=== PATIENT | male | born 1985 | race Caucasian/White ===

== ENCOUNTER 2018-05-07 13:03 | Emergency (ER) | payer OTHER ==
[2018-05-07 13:28] VITALS: BP 126/73
--- NOTE | 2018-05-07 13:59 | UC ---
Pk Luong Simon, scribed for Jayme Whitfield MD on 05/07/18 at 1337 . Skin Complaint HPI - HPI Summary HPI Summary: This patient is a 33 year old M presenting to [facility] [place] with a chief complaint of rash on shaft of penis for one week. Patient endorses rash is worsening. Pt has been having unprotected sex with of 12 years, and denies any pain or penile discharge. - History of Current Complaint Chief Complaint: UCRash Time Seen by Provider: 05/07/18 13:32 Stated Complaint: RASH Hx Obtained From: Patient Onset/Duration: Lasting Days, Still Present Timing: Constant Onset Severity: Mild Current Severity: Moderate Pain Intensity: 0 Pain Scale Used: 0-10 Numeric Location: Discrete - shaft of penis Character: Redness, Raised Aggravating Factor(s): Nothing Alleviating Factor(s): Nothing Associated Signs & Symptoms: Positive: Rash - Allergy/Home Medications Allergies/Adverse Reactions: Allergies Allergy/AdvReac Type Severity Reaction Status Date / Time No Known Allergies Allergy Verified 05/07/18 13:29 Review of Systems Skin: Rash, Other - purulence Genitourinary: Vaginal/Penile Burning, Vaginal/Penile Itching All Other Systems Reviewed And Are Negative: Yes PMH/Surg Hx/FS Hx/Imm Hx Previously Healthy: Yes - Surgical History Surgical History: None - Family History Known Family History: Positive: None - Social History Alcohol Use: None Substance Use Type: Marijuana Smoking Status (MU): Current Every Day Smoker Type: Cigarettes Amount Used/How Often: 1/2 PPD Length of Time of Smoking/Using Tobacco: 14+ YEARS Have You Smoked in the Last Year: Yes Physical Exam - Summary Physical Exam Summary: VITAL SIGNS: Reviewed. GENERAL: Patient is a well-developed and nourished male who is lying comfortable in the stretcher. Patient is not in any acute respiratory distress. HEAD AND FACE: Normocephalic EYES: PERRLA, EOMI x 2. EARS: Hearing grossly intact. MOUTH: Oropharynx within normal limits. NECK: Supple, trachea is midline, no adenopathy, no JVD, no carotid bruit. CHEST: Symmetric, no tenderness at palpation LUNGS: Clear to auscultation bilaterally. No wheezing or crackles. CVS: Regular rate and rhythm, S1 and S2 present, no murmurs or gallops appreciated. ABDOMEN: Soft, non-tender. Bowel sounds are normal. No abdominal abnormal pulsations. EXTREMITIES: Full ROM in all major joints, no edema, no cyanosis or clubbing. NEURO: Alert and oriented x 3. No acute neurological deficits. Speech is normal and follows commands. SKIN: Dry and warm, maculopapular rash on shaft of penis with some vesicles with white purulent discharge. Circumcised penis with both testicles descended, no tenderness. Triage Information Reviewed: Yes Vital Signs: Initial Vital Signs Temp 98 F 05/07/18 13:25 Pulse 69 05/07/18 13:25 Resp 17 05/07/18 13:25 BP 126/73 05/07/18 13:25 Pulse Ox 100 05/07/18 13:25 Vital Signs Reviewed: Yes Course/Dx - Course Course Of Treatment: This patient presents with a vesiculopapular rash on the shaft of the penis. It is not carachteristic of genital herpes. The vesicles a filled with white discharge. Rash is not tender. I send cultures for regular wound culture, and also for herpes simplex virus. At this time I would be given a prescription for Bactrim and the patient will follow-up with the primary care physician or the urgent care for the results of the HSV culture. The patient understands that he is recommended not to have any sexual intercourse without any protection. He understands and agrees. - Diagnoses Provider Diagnoses: Cellulitis r/o HSV Discharge - Sign-Out/Discharge Documenting (check all that apply): Discharge/Admit/Transfer - D/C - Discharge Plan Condition: Stable Disposition: HOME Prescriptions: Sulfamethox/Trimethoprim DS* [Bactrim DS 800/160 TAB*] 1 tab PO BID #10 tab Patient Education Materials: Cellulitis (ED) Referrals: Sg Ragsdale MD [Primary Care Provider] - Additional Instructions: Take medications as instructed Increase your fluid intake Return to the if symptoms worsen - Billing Disposition and Condition Condition: STABLE Disposition: Home The documentation as recorded by the Pk soto Simon accurately reflects the service I personally performed and the decisions made by me, Jayme Whitfield MD.
--- NOTE | 2018-05-09 15:27 | UC ---
- Progress Note Progress Note: Please call pt and ask how he is doing. Site culture was negative. If rash has cleared with Bactrim - may continue If rash is not improving - needs a f/u appointment with PCP. Discharge - Sign-Out/Discharge Documenting (check all that apply): Post-Discharge Follow Up - Discharge Plan Condition: Stable Disposition: HOME Prescriptions: Sulfamethox/Trimethoprim DS* [Bactrim DS 800/160 TAB*] 1 tab PO BID #10 tab Patient Education Materials: Cellulitis (ED) Referrals: Sg Ragsdale MD [Primary Care Provider] - Additional Instructions: Take medications as instructed Increase your fluid intake Return to the UC if symptoms worsen - Billing Disposition and Condition Condition: STABLE Disposition: Home
== END 2018-05-07 14:07 | disposition home or self-care (01) ==
LOC: UCEAST 13:03
DX: N48.22 Cellulitis of corpus cavernosum and penis (principal); F17.210 Nicotine dependence, cigarettes, uncomplicated
CPT/HCPCS: 87070; 87077; 87529; 87798; 99212; G0463

== ENCOUNTER 2018-08-25 19:47 | Emergency (ER) | payer OTHER ==
[2018-08-25 20:38] LABS: ABS Basophils 0.1 10^3/ul (0-0.2); ABS Eosinophils 0.2 10^3/ul (0-0.6); ABS Lymphocytes 2.6 10^3/ul (1.0-4.8); ABS Monocytes 0.5 10^3/ul (0-0.8); ABS Neutrophils 4.8 10^3/ul (1.5-7.7); ABS Nucleated RBC 0 10^3/ul; Eosinophil % 2.1 % (0-6); Hematocrit 42 % (42-52); Lymphocyte % 32.1 % (25-47); Mean Corpuscular HGB Conc 35 g/dl (31-36); Mean Corpuscular Hemoglobin 31 pg (27-31); Mean Corpuscular Volume 88 fL (80-94); Mean Platelet Volume 8.6 um3 (7.4-10.4); Nucleated Red Blood Cells % 0.1; Platelet Count 199 10^3/ul (150-450); Red Blood Count 4.79 10^6/ul (4.00-5.40); Red Cell Distribution Width 14 % (10.5-15); White Blood Count 8.1 10^3/ul (3.5-10.8)
[2018-08-25 20:55] LABS: EGFR Non-African American 108.2 (>60)
[2018-08-25] MEDS ORDERED: Ketorolac INJ* 60 MG/2 ML VIAL IM ONE (20:55)
[2018-08-25] MEDS ORDERED: Albuterol HFA INHALER* 8 gm MDI INH ONE (21:59)
--- NOTE | 2018-08-25 22:16 | ED ---
HPI Chest Pain - HPI Summary HPI Summary: This patient is a 33 year old M presenting to [facility] with a chief complaint of L sided burning CP since 1300. Had CP 1 month ago, came to ED, WBC slightly high, and was discharged. Today, just after getting home from lunch, he noted racing palpitations, SOB, LUE numbness down to thumb, productive cough, and pain radiation to L lateral neck. Pt endorses smoking. He endorses daily L sided CP, but today the sx were different (the numbness) so he came to the ED. He denies PMHx HTN HLD, DM, FHx CAD, HTN, DM. He currently denies active CP, just a light numbness. 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 - History of Current Complaint Chief Complaint: EDChestPainROMI Time Seen by Provider: 08/25/18 19:54 Hx Obtained From: Patient Onset/Duration: Started Hours Ago, Still Present - but improved Timing: Constant Initial Severity: Moderate Current Severity: Moderate Pain Intensity: 5 Pain Scale Used: 0-10 Numeric Chest Pain Location: Left Anterior, Left Lateral Chest Pain Radiates: Yes Chest Pain Radiates To:: Arm - L, Neck - L Character: Burning, Cough, Productive, Fast Aggravating Factor(s): Movement - LUE, neck Alleviating Factor(s): Nothing Associated Signs and Symptoms: Positive: Chest Pain, Numbness - LUE, Shortness of Breath, Palpitations - racing, Productive Cough. Negative: Fever - Allergy/Home Medications Allergies/Adverse Reactions: Allergies Allergy/AdvReac Type Severity Reaction Status Date / Time No Known Allergies Allergy Verified 07/11/18 15:19 PMH/Surg Hx/FS Hx/Imm Hx Endocrine/Hematology History: Denies: Hx Diabetes, Hx Thyroid Disease Cardiovascular History: Denies: Hx Hypertension Respiratory History: Denies: Hx Asthma, Hx Chronic Obstructive Pulmonary Disease (COPD) GI History: Denies: Hx Ulcer History: Denies: Hx Dialysis Sensory History: Denies: Hx Legally Blind, Hx Deafness Opthamlomology History: Denies: Hx Legally Blind EENT History: Denies: Hx Deafness Psychiatric History: Denies: Hx Schizophrenia Infectious Disease History: No Infectious Disease History: Denies: Hx Hepatitis, Hx Human Immunodeficiency Virus (HIV), Traveled Outside the [place] in Last 30 Days - Family History Known Family History: Negative: Hypertension, Diabetes - Social History Occupation: Employed Full-time Alcohol Use: None Substance Use Type: Reports: Marijuana Hx Tobacco Use: Yes Smoking Status (MU): Current Every Day Smoker Type: Cigarettes Amount Used/How Often: 1/2 PPD Length of Time of Smoking/Using Tobacco: 14+ YEARS Have You Smoked in the Last Year: Yes Review of Systems Negative: Fever, Chills Negative: Erythema Negative: Sore Throat Positive: Palpitations - racing, Chest Pain - L anterior, L lateral Positive: Shortness Of Breath, Cough Negative: Abdominal Pain, Vomiting, Nausea Negative: dysuria, flank pain Positive: Arthralgia - L shoulder, L side neck. Negative: Myalgia, Edema Negative: Rash Neurological: Other - NEGATIVE: dizziness Positive: Numbness - LUE All Other Systems Reviewed And Are Negative: Yes Physical Exam - Summary Physical Exam Summary: Constitutional: Well-developed, Well-nourished, Alert. (-) Distressed. Coughing in room Skin: Warm, Dry HENT: Normocephalic; Atraumatic Eyes: Conjunctiva normal Neck: Musculoskeletal ROM normal neck. (-) JVD, (-) Stridor, (-) Tracheal deviation Cardio: Rhythm regular, rate normal, Heart sounds normal; Intact distal pulses; The pedal pulses are 2+ and symmetric. Radial pulses are 2+ and symmetric. (-) Murmur Pulmonary/Chest wall: Effort normal. (-) Respiratory distress, (-) Wheezes, (-) Rales, coughing in room. Abd: Soft, (-) epigastric tenderness, (-) Distension, (-) Guarding, (-) Rebound Musculoskeletal: (-) Edema, sx somewhat reproducible with shoulder and neck ROM Lymph: (-) Cervical adenopathy Neuro: Alert, Oriented x3 Psych: Mood and affect Normal Triage Information Reviewed: Yes Vital Signs On Initial Exam: Initial Vitals Temp Pulse Resp BP Pulse Ox 98.6 F 72 18 103/74 99 08/25/18 19:52 08/25/18 19:52 08/25/18 19:52 08/25/18 19:52 08/25/18 19:52 Vital Signs Reviewed: Yes Diagnostics - Vital Signs Vital Signs Temp Pulse Resp BP Pulse Ox 08/25/18 19:52 98.6 F 72 18 103/74 99 - Laboratory Lab Results: Lab Results 08/25/18 08/25/18 08/25/18 Range/Units 20:26 20:26 20:26 WBC 8.1 (3.5-10.8) 10^3/ul RBC 4.79 (4.00-5.40) 10^6/ul Hgb 15.0 (14.0-18.0) g/dl Hct 42 (42-52) % MCV 88 (80-94) fL MCH 31 (27-31) pg MCHC 35 (31-36) g/dl RDW 14 (10.5-15) % Plt Count 199 (150-450) 10^3/ul MPV 8.6 (7.4-10.4) um3 Neut % (Auto) 59.1 (38-83) % Lymph % (Auto) 32.1 (25-47) % Sebastian % (Auto) 5.8 (0-7) % Eos % (Auto) 2.1 (0-6) % Baso % (Auto) 0.9 (0-2) % Absolute Neuts (auto) 4.8 (1.5-7.7) 10^3/ul Absolute Lymphs (auto) 2.6 (1.0-4.8) 10^3/ul Absolute Monos (auto) 0.5 (0-0.8) 10^3/ul Absolute Eos (auto) 0.2 (0-0.6) 10^3/ul Absolute Basos (auto) 0.1 (0-0.2) 10^3/ul Absolute Nucleated RBC 0 10^3/ul Nucleated RBC % 0.1 D-Dimer, Quantitative (Less Than 230) ng/mL Sodium 138 (135-145) mmol/L Potassium 3.8 (3.5-5.0) mmol/L Chloride 106 (101-111) mmol/L Carbon Dioxide 27 (22-32) mmol/L Anion Gap 5 (2-11) mmol/L BUN 16 (6-24) mg/dL Creatinine 0.82 (0.67-1.17) mg/dL Est GFR ( Amer) 130.9 (>60) Est GFR (Non-Af Amer) 108.2 (>60) BUN/Creatinine Ratio 19.5 (8-20) Glucose 86 (70-100) mg/dL Lactic Acid 0.4 L (0.5-2.0) mmol/L Calcium 9.6 (8.6-10.3) mg/dL Total Bilirubin 0.90 (0.2-1.0) mg/dL AST 23 (13-39) U/L ALT 23 (7-52) U/L Alkaline Phosphatase 52 (34-104) U/L Troponin I 0.00 (<0.04) ng/mL Total Protein 7.1 (6.4-8.9) g/dL Albumin 4.5 (3.2-5.2) g/dL Globulin 2.6 (2-4) g/dL Albumin/Globulin Ratio 1.7 (1-3) 08/25/ Range/Units 21:24 WBC (3.5-10.8) 10^3/ul RBC (4.00-5.40) 10^6/ul Hgb (14.0-18.0) g/dl Hct (42-52) % MCV (80-94) fL MCH (27-31) pg MCHC (31-36) g/dl RDW (10.5-15) % Plt Count (150-450) 10^3/ul MPV (7.4-10.4) um3 Neut % (Auto) (38-83) % Lymph % (Auto) (25-47) % Sebastian % (Auto) (0-7) % Eos % (Auto) (0-6) % Baso % (Auto) (0-2) % Absolute Neuts (auto) (1.5-7.7) 10^3/ul Absolute Lymphs (auto) (1.0-4.8) 10^3/ul Absolute Monos (auto) (0-0.8) 10^3/ul Absolute Eos (auto) (0-0.6) 10^3/ul Absolute Basos (auto) (0-0.2) 10^3/ul Absolute Nucleated RBC 10^3/ul Nucleated RBC % D-Dimer, Quantitative < 200 (Less Than 230) ng/mL Sodium (135-145) mmol/L Potassium (3.5-5.0) mmol/L Chloride (101-111) mmol/L Carbon Dioxide (22-32) mmol/L Anion Gap (2-11) mmol/L BUN (6-24) mg/dL Creatinine (0.67-1.17) mg/dL Est GFR ( Amer) (>60) Est GFR (Non-Af Amer) (>60) BUN/Creatinine Ratio (8-20) Glucose (70-100) mg/dL Lactic Acid (0.5-2.0) mmol/L Calcium (8.6-10.3) mg/dL Total Bilirubin (0.2-1.0) mg/dL AST (13-39) U/L ALT (7-52) U/L Alkaline Phosphatase (34-104) U/L Troponin I (<0.04) ng/mL Total Protein (6.4-8.9) g/dL Albumin (3.2-5.2) g/dL Globulin (2-4) g/dL Albumin/Globulin Ratio (1-3) Result Diagrams: 08/25/18 20:26 08/25/18 20:26 Lab Statement: Any lab studies that have been ordered have been reviewed, and results considered in the medical decision making process. - Radiology CXR Radiology Interpretation Completed By: ED Physician Summary of Radiographic Findings: No acute disease. Pending official imaging report. - EKG 1952 EKG Rhythm: Sinus Rhythm ST Segment: Normal Ectopy: None Summary of EKG Findings: No STEMI. Chest Pain Course/Dx - Course Course Of Treatment: A 33-year-old M presents to the ED with a CC of L anterior and lateral CP since 1300. (+) SOB, LUE numbness, radiation to L neck, racing palpitations, and productive cough. (-) current CP. "CP every day" but today it was different (regarding the numbness) so he came to the ED. 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 A CXR was ( -). An EKG reveals NSR at 73 BPM with no STEMI. In the ED course, pt was given albuterol and toradol. Pt labs show low lactic acid. Pending 2nd trop, signed out to Dr. Mo. - Diagnoses Provider Diagnoses: Chest pain Discharge - Sign-Out/Discharge Documenting (check all that apply): Sign-Out Patient Signing out patient TO: Tai Mo - Repeat trop - Discharge Plan Condition: Good Disposition: HOME Patient Education Materials: Chest Pain (ED) Referrals: Sg Ragsdale MD [Primary Care Provider] - 1 Week Additional Instructions: We did not find any evidence of a heart or other serious problem. Your electrocardiogram, chest x-ray, and blood work were all normal. If your symptoms continue to bother you, check in with your PCP. If you develop new or worsening symptoms we should see you back here. - Billing Disposition and Condition Condition: GOOD Disposition: Home - Attestation Statements Document Initiated by Yoselin: Yes Documenting Scribe: Valdez Whittington Provider For Whom Yoselin is Documenting (Include Credential): Dr. Tyrone Chamberlain MD Scribe Attestation: Valdez Luong scribed for Dr. Tyrone Chamberlain MD on 08/26/18 at 1414. Scribe Documentation Reviewed: Yes Provider Attestation: The documentation as recorded by the Valdez soto accurately reflects the service I personally performed and the decisions made by me, Dr. Tyrone Chamberlain MD
--- NOTE | 2018-08-26 00:01 | ED ---
Progress - Progress Note Progress Note: This patient was signed out from Dr. Chamberlain awajosé luis grant troponin. The second trop was also 0 so the patient will be discharged Course/Dx - Course Course Of Treatment: This patient was signed out from Dr. Chamberlain awajosé luis grant troponin. The second trop was also 0 so the patient will be discharged Discharge - Sign-Out/Discharge Documenting (check all that apply): Patient Departure, Receiving Sign-Out Receiving patient FROM: Tyrone Chamberlain - Discharge Plan Condition: Good Disposition: HOME Patient Education Materials: Chest Pain (ED) Referrals: Sg Ragsdale MD [Primary Care Provider] - 1 Week Additional Instructions: We did not find any evidence of a heart or other serious problem. Your electrocardiogram, chest x-ray, and blood work were all normal. If your symptoms continue to bother you, check in with your PCP. If you develop new or worsening symptoms we should see you back here. - Attestation Statements Document Initiated by Scribe: Yes Documenting Scribe: Justus Guajardo Provider For Whom Scribe is Documenting (Include Credential): Tai Mo MD Scribe Attestation: IJustus, scribed for Tai Mo MD on 08/26/18 at 0023.
[2018-08-26 00:17] VITALS: BP 124/56
--- NOTE | 2018-08-26 07:05 | RAD ---
INDICATION: Chest pain. COMPARISON: Correlation is made with a prior study from July 11, 2018. TECHNIQUE: 2 portable films of the chest were obtained. FINDINGS: Cardiac and mediastinal contours appear to be within normal limits. The lungs are clear. No pleural effusion is seen. IMPRESSION: NO EVIDENCE FOR ACUTE DISEASE. R0
== END 2018-08-26 00:16 | disposition home or self-care (01) ==
LOC: ED 19:47
DX: R07.9 Chest pain, unspecified (principal); F17.210 Nicotine dependence, cigarettes, uncomplicated; I10 Essential (primary) hypertension; E78.5 Hyperlipidemia, unspecified; E11.9 Type 2 diabetes mellitus without complications
CPT/HCPCS: 36415; 71045; 80053; 83605; 84484; 85025; 85379; 93005; 96372; 99283; A9270-GY; J1885

== ENCOUNTER 2019-01-04 13:12 | Emergency (ER) | payer OTHER ==
--- NOTE | 2019-01-04 14:37 | ED ---
HPI Chest Pain - HPI Summary HPI Summary: A 33 y/o male presents to [facility] with a chief complaint of chest pain for a couple months [employer]MONIUM [employer]ITRATE [employer]UTRAL[employer]ER on 01/04/19. He reports that he has been to the ED two times and his EKGs were normal. He claims that due to his WBC count, it was thought that he may have had an infection, and was given Z-Pack. He has since seen his PCP at [place] about 1-2 months [employer] who claims that the patient was fine. Per triage note, the patient rates his pain as a 2/10 in severity and reports numbness in his left arm and fingers. He also reports chills, nausea and head pressure. He describes his chest pain as a discomfort. He denies SOB. He claims that his chest pain has not really gone away. Smoking cigarettes worsens his pain and squeezing part of his chest alleviates the pain. He reports a Hx of a fractured L2. Vital signs while in room HR: 70bpm, O2 Sat: 98, BP: 138/81. - History of Current Complaint Chief Complaint: EDChestPainROMI Time Seen by Provider: 01/04/19 13:53 Hx Obtained From: Patient Onset/Duration: Started Days Ago, Still Present Timing: Constant Initial Severity: Mild Current Severity: Mild Pain Intensity: 2 Pain Scale Used: 0-10 Numeric Chest Pain Location: Diffuse Chest Pain Radiates: No Character: Other: - discomfort Aggravating Factor(s): Other: - Smoking cigarettes Alleviating Factor(s): Other: - squeezing part of his chest Associated Signs and Symptoms: Positive: Numbness, Chills. Negative: Shortness of Breath - Allergy/Home Medications Allergies/Adverse Reactions: Allergies Allergy/AdvReac Type Severity Reaction Status Date / Time No Known Allergies Allergy Verified 01/04/19 13:14 Home Medications: Home Medications NK [No Home Medications Reported] 01/04/19 [History Confirmed 01/04/19] PMH/Surg Hx/FS Hx/Imm Hx Endocrine/Hematology History: Denies: Hx Diabetes, Hx Thyroid Disease Cardiovascular History: Denies: Hx Hypertension Respiratory History: Denies: Hx Asthma, Hx Chronic Obstructive Pulmonary Disease (COPD) GI History: Denies: Hx Ulcer History: Denies: Hx Dialysis Sensory History: Denies: Hx Legally Blind, Hx Deafness Opthamlomology History: Denies: Hx Legally Blind Psychiatric History: Denies: Hx Schizophrenia - Surgical History Surgery Procedure, Year, and Place: Fractured L2 Infectious Disease History: No Infectious Disease History: Denies: Hx Hepatitis, Hx Human Immunodeficiency Virus (HIV), Traveled Outside the [place] in Last 30 Days - Family History Known Family History: Negative: Hypertension, Diabetes - Social History Alcohol Use: Rare Substance Use Type: Reports: Marijuana Hx Tobacco Use: Yes Smoking Status (MU): Current Every Day Smoker Type: Cigarettes Amount Used/How Often: 1/2 PPD Length of Time of Smoking/Using Tobacco: 14+ YEARS Have You Smoked in the Last Year: Yes Review of Systems Positive: Chills Positive: Chest Pain Negative: Shortness Of Breath Positive: Nausea All Other Systems Reviewed And Are Negative: Yes Physical Exam - Summary Physical Exam Summary: Appearance: The patient is well-nourished in no acute distress and in no acute pain. Skin: The skin is warm and dry and skin color reflects adequate perfusion. HEENT: The head is normocephalic and atraumatic. The pupils are equal and reactive. The conjunctivae are clear and without drainage. Nares are patent and without drainage. Mouth reveals moist mucous membranes and the throat is without erythema and exudate. The external ears are intact. The ear canals are patent and without drainage. The tympanic membranes are intact. Neck: The neck is supple with full range of motion and non-tender. There are no carotid bruits. There is no neck vein distension. Respiratory: Tender left rhomboid area and pectoralis. Lungs are clear to auscultation and breath sounds are symmetrical and equal. Cardiovascular: Heart is regular rate and rhythm. There is no murmur or rub auscultated. There is no peripheral edema and pulses are symmetrical and equal. Abdomen: The abdomen is soft and non-tender. There are normal bowel sounds heard in all four quadrants and there is no organomegaly palpated. Musculoskeletal: Tender left rhomboid area and pectoralis. Extremities with full range of motion. There is good capillary refill. There is no peripheral edema or calf tenderness elicited. Neurological: Patient is alert and oriented to person, place and time. The patient has symmetrical motor strength in all four extremities. Cranial nerves are grossly intact. Deep tendon reflexes are symmetrical and equal in all four extremities. Psychiatric: The patient has an appropriate affect and does not exhibit any anxiety or depression. Triage Information Reviewed: Yes Vital Signs On Initial Exam: Initial Vitals Temp Pulse Resp BP Pulse Ox 99.2 F 82 19 122/85 98 01/04/19 13:14 01/04/19 13:14 01/04/19 13:14 01/04/19 13:14 01/04/19 13:14 Vital Signs Reviewed: Yes Diagnostics - Vital Signs Vital Signs Temp Pulse Resp BP Pulse Ox 01/04/19 14:14 79 18 01/04/19 14:13 81 18 138/81 98 01/04/19 14:12 85 18 97 01/04/19 13:14 99.2 F 82 19 122/85 98 - Laboratory Result Diagrams: 01/04/19 14:52 Lab Statement: Any lab studies that have been ordered have been reviewed, and results considered in the medical decision making process. - Radiology CXR Radiology Interpretation Completed By: Radiologist Summary of Radiographic Findings: No active cardiopulmonary disease is noted. ED physician has reviewed this imaging report. - EKG 13:27 Cardiac Rate: NL - 71 bpm EKG Rhythm: Sinus Rhythm ST Segment: Normal Ectopy: None Summary of EKG Findings: Normal sinus rhythm, normal ST, no ectopy, no STEMI Re-Evaluation - Re-Evaluation First Eval Re-Evaluation Time: 16:44 Change: Improved Comment: Patient is feeling better and will be discharged Chest Pain Course/Dx - Course Course Of Treatment: Mr. Preciado presented basically the story of every day left -sided chest pain that has been going on since November. There are times when it is worse sometimes when it is better but he seems to have had it every day. He's had a workup in the emergency department a couple of times and referred to his PCP. He is a smoker. His exam here was suggestive of a dorsal radiculopathy for me. His workup including chest x-ray and labs with troponin was negative. I think this is likely a radiculopathy however I recommended he stop smoking as the pain is worsened when he smokes. He stated he would follow- up with his PCP for next steps. - Diagnoses Provider Diagnoses: Chest pain Discharge - Sign-Out/Discharge Documenting (check all that apply): Patient Departure - DC Patient Received Moderate/Deep Sedation with Procedure: No - Discharge Plan Condition: Stable Disposition: HOME Patient Education Materials: Chest Pain (DC) Referrals: Sg Ragsdale MD [Primary Care Provider] - (2-3 days) Additional Instructions: Quit smoking. Return to the ED if you experience any new or worsening symptoms. - Billing Disposition and Condition Condition: STABLE Disposition: Home - Attestation Statements Document Initiated by Yoselin: Yes Documenting Scribe: Rufus Winslow Provider For Whom Yoselin is Documenting (Include Credential): Tai Monk MD Scribe Attestation: I, Rufus Winslow, scribed for Tai Monk MD on 01/04/19 at 1737. Scribe Documentation Reviewed: Yes Provider Attestation: The documentation as recorded by the Rufus soto accurately reflects the service I personally performed and the decisions made by me, Tai Monk MD Status of Scribe Document: Viewed
[2019-01-04 15:05] LABS: ABS Basophils 0.1 10^3/ul (0-0.2); ABS Eosinophils 0.1 10^3/ul (0-0.6); ABS Lymphocytes 1.5 10^3/ul (1.0-4.8); ABS Monocytes 0.4 10^3/ul (0-0.8); ABS Neutrophils 7.1 10^3/ul (1.5-7.7); ABS Nucleated RBC 0 10^3/ul; Eosinophil % 1.3 %; Hematocrit 43 % (42-52); Hemoglobin 14.9 g/dl (14.0-18.0); Lymphocyte % 16.2 %; Mean Corpuscular HGB Conc 35 g/dl (31-36); Mean Corpuscular Hemoglobin 31 pg (27-31); Mean Corpuscular Volume 89 fL (80-94); Mean Platelet Volume 8.9 fL (7.4-10.4); Nucleated Red Blood Cells % 0.1; Platelet Count 193 10^3/ul (150-450); Red Blood Count 4.85 10^6/ul (4.00-5.40); Red Cell Distribution Width 14 % (10.5-15); White Blood Count 9.1 10^3/ul (3.5-10.8)
[2019-01-04 16:56] VITALS: BP 136/73
== END 2019-01-04 16:56 | disposition home or self-care (01) ==
LOC: ED 13:12
DX: R07.89 Other chest pain (principal); R20.0 Anesthesia of skin; R68.83 Chills (without fever); R11.0 Nausea; F17.210 Nicotine dependence, cigarettes, uncomplicated
CPT/HCPCS: 36415; 71046; 83605; 84484; 85025; 93005; 99283

== ENCOUNTER 2019-08-25 08:25 | Emergency (ER) | payer OTHER ==
[2019-08-25 08:37] VITALS: BP 134/61
--- NOTE | 2019-08-25 08:54 | UC ---
Dental HPI - HPI Summary HPI Summary: Patient is a 34-year-old male who presents to the urgent care c/o left ear pain and dental pain for the last couple weeks. He denies any fever, any chills, any trismus or swelling of tongue or lips. - History of Current Complaint Chief Complaint: UCDentalProblem Stated Complaint: EAR / DENTAL PAIN Time Seen by Provider: 08/25/19 08:34 Hx Obtained From: Patient Onset/Duration: Gradual Onset Severity: Mild Pain Intensity: 8 - Allergies/Home Medications Allergies/Adverse Reactions: Allergies Allergy/AdvReac Type Severity Reaction Status Date / Time No Known Allergies Allergy Verified 08/25/19 08:38 Home Medications: Home Medications Escitalopram Oxalate [Lexapro 10 mg] 10 mg PO DAILY 08/25/19 [History Confirmed 08/25/19] PMH/Surg Hx/FS Hx/Imm Hx Previously Healthy: Yes - Surgical History Surgical History: Yes Surgery Procedure, Year, and Place: Fractured L2 - Family History Known Family History: Positive: Non-Contributory Negative: Hypertension, Diabetes - Social History Alcohol Use: Rare Substance Use Type: Marijuana Substance Use Comment - Amount & Last Used: 4 times a week Smoking Status (MU): Light Every Day Tobacco Smoker Type: Cigarettes Amount Used/How Often: 1/2 PPD Length of Time of Smoking/Using Tobacco: 14+ YEARS Have You Smoked in the Last Year: Yes Review of Systems All Other Systems Reviewed And Are Negative: Yes Constitutional: Positive: Negative Skin: Positive: Negative Eyes: Positive: Negative ENT: Positive: Dental Pain, Ear Ache Respiratory: Positive: Negative Cardiovascular: Positive: Negative Gastrointestinal: Positive: Negative Genitourinary: Positive: Negative Motor: Positive: Negative Neurovascular: Positive: Negative Musculoskeletal: Positive: Negative Neurological: Positive: Negative Psychological: Positive: Negative Is Patient Immunocompromised?: No Physical Exam - Summary Physical Exam Summary: VITAL SIGNS: Reviewed. GENERAL: Patient is a well developed and nourished -- with some distress secondary to the shortness of breath. However, --- is able to speak in full sentences. HEAD AND FACE: Normocephalic and atraumatic. EYES: PERRLA, EOMI x 2, No injected conjunctiva. EARS: Hearing grossly intact. Ear canals and tympanic membranes WNL MOUTH: Dry oral mucosa. Was instructed that the cavities and tooth 16, 17, 31 and 1 NECK: Supple, trachea is midline, no adenopathy, no JVD, no carotid bruit. CHEST: Symmetric, No intercostal or abdominal retraction, LUNGS: Diffuse bilateral wheezing and decreased breath sounds.No crackles. CVS: RRR,, S1 and S2 present, no murmurs or gallops appreciated. ABDOMEN: Soft, non-tender. No signs of distention. Positive BS. No rebound, no guarding, and no masses palpated. EXTREMITIES: FROM in all major joints, no edema, no cyanosis or clubbing. NEURO: Alert and oriented x 3. No acute neurological deficits. Speech is normal and follows commands. SKIN: Dry and warm Triage Information Reviewed: Yes Appearance: Well-Appearing Vital Signs: Initial Vital Signs Temp 97.8 F 08/25/19 08:32 Pulse 77 08/25/19 08:32 Resp 18 08/25/19 08:32 BP 134/61 08/25/19 08:32 Pulse Ox 98 08/25/19 08:32 Vital Signs Reviewed: Yes Dental Complaint Course/Dx - Course Course Of Treatment: He seems that the pain is secondary to dental cavities pain. The exam is completely normal. Therefore, she was recommended to follow up with the dentist. The patient understands and agrees. - Differential Dx/Diagnosis Provider Diagnosis: Dental cavity, Pain, dental Discharge ED - Sign-Out/Discharge Documenting (check all that apply): Patient Departure All imaging exams completed and their final reports reviewed: No Studies - Discharge Plan Condition: Stable Disposition: HOME Patient Education Materials: Toothache (ED) Referrals: Sg Ragsdale MD [Primary Care Provider] - Additional Instructions: Follow-up with the dentist. Take ibuprofen or Tylenol for the pain. - Billing Disposition and Condition Condition: STABLE Disposition: Home
== END 2019-08-25 08:59 | disposition home or self-care (01) ==
LOC: UCEAST 08:25
DX: K02.9 Dental caries, unspecified (principal); K08.89 Other specified disorders of teeth and supporting structures; H92.02 Otalgia, left ear; F17.210 Nicotine dependence, cigarettes, uncomplicated
CPT/HCPCS: 99211; G0463

== ENCOUNTER 2019-11-23 14:01 | Emergency (ER) | payer OTHER ==
[2019-11-23] MEDS ORDERED: Al Hydrox/Mg Hydrox/Simet LIQ* 30 ML UDC PO ONE (14:21)
[2019-11-23] MEDS ORDERED: Lidocaine 2% VISCOUS* 15 ML UDC PO ONE (14:21)
[2019-11-23 14:48] LABS: ABS Eosinophils 0.1 10^3/ul (0-0.6); ABS Monocytes 0.3 10^3/ul (0-0.8); ABS Neutrophils 3.2 10^3/ul (1.5-7.7); Eosinophil % 1.8 %; Hematocrit 42 % (42-52); Hemoglobin 14.7 g/dL (14.0-18.0); Lymphocyte % 35.8 %; Mean Corpuscular HGB Conc 35 g/dL (31-36); Mean Corpuscular Hemoglobin 31 pg (27-31); Mean Corpuscular Volume 87 fL (80-94); Mean Platelet Volume 8.9 fL (7.4-10.4); Nucleated Red Blood Cells % 0.1; Platelet Count 192 10^3/uL (150-450); Red Blood Count 4.77 10^6 /uL (4.18-5.48); Red Cell Distribution Width 14 % (10-15); White Blood Count 5.7 10^3/uL (3.5-10.8)
[2019-11-23 14:58] LABS: INR 1.06 (0.82-1.09)
[2019-11-23 15:07] LABS: Albumin 4.2 g/dL (3.2-5.2); Albumin/Globulin Ratio 1.7 (1-3); BUN/Creatinine Ratio 24.7 (8-20); Calcium 9.2 mg/dL (8.6-10.3); EGFR Non-African American 109.1 (>60); Globulin 2.5 g/dL (2-4); Total Bilirubin 0.7 mg/dL (0.2-1.0); Total Protein 6.7 g/dL (6.4-8.9)
--- NOTE | 2019-11-23 15:12 | ED ---
HPI Chest Pain - HPI Summary HPI Summary: The patient is a 34 y/o male presenting to [facility] with a chief complaint of intermittent episodes of left anterior CP onset a year and a half ago. He reports that he has had occurrences of chest pressure and weight on the left chest for over the last year, but he has not been able to obtain an answer as to why it is happening. He had been on Lexapro for possible anxiety-associated symptoms as prescribed by his PCP, but it did not help with the pain despite being on it for months. He stopped taking the medication a few months ago and has been still experiencing the pain. 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 He recently has been using the right arm more for driving which has somewhat alleviated the chest pain. He also states that the pain is not present in the morning but worsens throughout the day. 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 He endorses SOB with the pain. Pain rated 7/10 in severity now. No other PMHx. No cardiac FHx. Current smoker, no EtOH, marijuana use. Medications reviewed. Allergies noted. - History of Current Complaint Chief Complaint: EDChestPainROMI Time Seen by Provider: 11/23/19 14:20 Hx Obtained From: Patient Onset/Duration: Started Weeks Ago, Still Present Timing: Intermittent Initial Severity: Moderate Current Severity: Moderate Pain Intensity: 7 Pain Scale Used: 0-10 Numeric Chest Pain Location: Left Anterior Chest Pain Radiates: No Character: Other: - pressure/weight Aggravating Factor(s): Movement - driving with left arm for extended amount of time Alleviating Factor(s): Other: - using right arm to drive Associated Signs and Symptoms: Positive: Chest Pain, Shortness of Breath - Allergy/Home Medications Allergies/Adverse Reactions: Allergies Allergy/AdvReac Type Severity Reaction Status Date / Time No Known Allergies Allergy Verified 08/25/19 08:38 Home Medications: Home Medications NK [No Home Medications Reported] 11/23/19 [History Confirmed 11/23/19] PMH/Surg Hx/FS Hx/Imm Hx Endocrine/Hematology History: Denies: Hx Diabetes, Hx Thyroid Disease Cardiovascular History: Denies: Hx Hypertension Respiratory History: Denies: Hx Asthma, Hx Chronic Obstructive Pulmonary Disease (COPD) GI History: Denies: Hx Ulcer History: Denies: Hx Dialysis Sensory History: Denies: Hx Legally Blind, Hx Deafness Opthamlomology History: Denies: Hx Legally Blind Psychiatric History: Denies: Hx Schizophrenia - Surgical History Surgical History: Yes Surgery Procedure, Year, and Place: Fractured L2 Infectious Disease History: No Infectious Disease History: Denies: Hx Hepatitis, Hx Human Immunodeficiency Virus (HIV), Traveled Outside the [place] in Last 30 Days - Family History Known Family History: Negative: Cardiac Disease, Hypertension, Diabetes - Social History Alcohol Use: None Substance Use Type: Reports: Marijuana Substance Use Comment - Amount & Last Used: 4 times a week Hx Tobacco Use: Yes Smoking Status (MU): Light Every Day Tobacco Smoker Type: Cigarettes Amount Used/How Often: 1/2 PPD Length of Time of Smoking/Using Tobacco: 14+ YEARS Have You Smoked in the Last Year: Yes Review of Systems Positive: Chest Pain - left anterior Positive: Shortness Of Breath All Other Systems Reviewed And Are Negative: Yes Physical Exam - Summary Physical Exam Summary: Constitutional: Well-developed, Well-nourished, Alert. (-) Distressed Skin: Warm, Dry HENT: Normocephalic; Atraumatic Eyes: Conjunctiva normal Neck: Musculoskeletal ROM normal neck. (-) JVD, (-) Stridor, (-) Nuchal rigidity Cardio: Rhythm regular, rate normal, Heart sounds normal; Intact distal pulses; Radial pulses are 2+ and symmetric. (-) Murmur Pulmonary/Chest wall: Effort normal. (-) Respiratory distress, (-) Wheezes, (-) Rales Abd: Soft, (-) tenderness, (-) Distension, (-) Guarding, (-) Rebound Musculoskeletal: (-) Edema Neuro: Alert, Oriented x3 Psych: Mood and affect Normal Triage Information Reviewed: Yes Vital Signs On Initial Exam: Initial Vitals Temp Pulse Resp BP Pulse Ox 97.5 F 67 18 118/67 100 11/23/19 14:07 11/23/19 14:07 11/23/19 14:07 11/23/19 14:07 11/23/19 14:07 Vital Signs Reviewed: Yes Procedures - Sedation Patient Received Moderate/Deep Sedation with Procedure: No Diagnostics - Vital Signs Vital Signs Temp Pulse Resp BP Pulse Ox 11/23/19 14:34 70 14 137/73 99 11/23/19 14:19 13 11/23/19 14:07 97.5 F 67 18 118/67 100 - Laboratory Lab Results: Lab Results 11/23/19 11/23/19 11/23/19 Range/Units 14:24 14:24 14:24 WBC 5.7 (3.5-10.8) 10^3/uL RBC 4.77 (4.18-5.48) 10^6 /uL Hgb 14.7 (14.0-18.0) g/dL Hct 42 (42-52) % MCV 87 (80-94) fL MCH 31 (27-31) pg MCHC 35 (31-36) g/dL RDW 14 (10-15) % Plt Count 192 (150-450) 10^3/uL MPV 8.9 (7.4-10.4) fL Neut % (Auto) 56.1 % Lymph % (Auto) 35.8 % [place] % (Auto) 5.7 % Eos % (Auto) 1.8 % Baso % (Auto) 0.6 % Absolute Neuts (auto) 3.2 (1.5-7.7) 10^3/ul Absolute Lymphs (auto) 2.0 (1.0-4.8) 10^3/ul Absolute Monos (auto) 0.3 (0-0.8) 10^3/ul Absolute Eos (auto) 0.1 (0-0.6) 10^3/ul Absolute Basos (auto) 0.0 (0-0.2) 10^3/ul Absolute Nucleated RBC 0.0 10^3/ul Nucleated RBC % 0.1 INR (Anticoag Therapy) 1.06 (0.82-1.09) Sodium 137 (135-145) mmol/L Potassium 4.0 (3.5-5.0) mmol/L Chloride 103 (101-111) mmol/L Carbon Dioxide 28 (22-32) mmol/L Anion Gap 6 (2-11) mmol/L BUN 20 (6-24) mg/dL Creatinine 0.81 (0.67-1.17) mg/dL Est GFR ( Amer) 132.0 (>60) Est GFR (Non-Af Amer) 109.1 (>60) BUN/Creatinine Ratio 24.7 H (8-20) Glucose 85 (70-100) mg/dL Calcium 9.2 (8.6-10.3) mg/dL Total Bilirubin 0.70 (0.2-1.0) mg/dL AST 21 (13-39) U/L ALT 24 (7-52) U/L Alkaline Phosphatase 63 (34-104) U/L Troponin I 0.00 (<0.03) ng/mL Total Protein 6.7 (6.4-8.9) g/dL Albumin 4.2 (3.2-5.2) g/dL Globulin 2.5 (2-4) g/dL Albumin/Globulin Ratio 1.7 (1-3) Result Diagrams: 11/23/19 14:24 11/23/19 14:24 Lab Statement: Any lab studies that have been ordered have been reviewed, and results considered in the medical decision making process. - Radiology CXR Radiology Interpretation Completed By: Radiologist Summary of Radiographic Findings: Impression: 1. Elevated lung volumes may reflect obstructive lung disease or simply exuberant inspiratory effort for examination. 2. No acute cardiopulmonary process evident. ED physician has reviewed this report. - EKG 1401 Cardiac Rate: NL - 71 BPM EKG Rhythm: Sinus Rhythm EKG Comparison: No Significant Change - Compared to 01/04/2019, no significant change. Summary of EKG Findings: An EKG at 1401 reveals normal sinus rhythm at 71 BPM, PVCs. Compared to 01/04/2019, no significant change. ED physician has reviewed and interpreted this EKG. Chest Pain Course/Dx - Course Course Of Treatment: 34 y/o male w hx tobacco use p/w L sided CP for 1 year. - VSS NAD. - Chest Pain DDX: The patient is well appearing, with stable vitals. 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 He could have a underlying MSK cause of pain. However I informed him it is still important that he still follow up with his primary care doctor for possible stress test. Heart score: 1, low risk. Based on a HEART score of 1the patient has a low risk (<2% chance) of major adverse cardiac event within the next 6 weeks. I explained to the patient that based on the work-up today, her risk of heart attack is low and that he/she will be discharged with outpatient follow-up. Strict return precautions were discussed regarding worsening chest pain, new / atypical pain, shortness of breath, or any other serious concerns. Patient endorsed understanding and has no questions at this time. Although less likely, differential also includes the following: --Pneumothorax: Equal breath sounds, story inconsistent since gradual onset of symptoms. CXR shows no evidence of pneumothorax. Unlikely. --Cardiac tamponade : The history and physical are not concerning for tamponade. No Pulsus Paradoxus , no tachypnea. Unlikely. --Mediastinitis or esophageal rupture: The history is not consistent, as the patient has had no recent history of significant wretching, instrumentation, or mediastinal surgeries. Unlikely. --Aortic dissection: The patient does not describe the classical tearing chest pain radiating into the back, and the CXR does not show mediastinal widening or other signs of aortic dissection. Unlikely. --PE: Vitals wnl (not hypoxic, tachycardic or tachypneic). PERC neg. --ACS: The initial EKG shows no ischemic changes. The initial troponin is not elevated. - Diagnoses Provider Diagnoses: Chest pain Discharge ED - Sign-Out/Discharge Documenting (check all that apply): Patient Departure - Patient will be discharged home. - Discharge Plan Condition: Stable Disposition: HOME Patient Education Materials: Chest Pain (ED) Referrals: Sg Ragsdale MD [Primary Care Provider] - 3 Days Kassandra Robin MD [Medical Doctor] - 3 Days Additional Instructions: You were seen in the emergency department for chest pain. Your EKG (heart tracing), labs and chest x-ray did not show any cause for pain. Important that you follow up with you primary care doctor in the next 1-2 days to help schedule an outpatient stress test. Please return to the emergency department for continued chest pain, trouble breathing, passing out, or if you're concerned. - Billing Disposition and Condition Condition: STABLE Disposition: Home - Attestation Statements Document Initiated by Scribe: Yes Documenting Scribe: Sarai Brannon Provider For Whom Yoselin is Documenting (Include Credential): Dr. Carmen Lubin MD Scribe Attestation: Sarai Luong, scribed for Dr. Carmen Lubin MD on 11/23/19 at 1605. Scribe Documentation Reviewed: Yes Provider Attestation: The documentation as recorded by the scribe, Sarai Brannon accurately reflects the service I personally performed and the decisions made by me, Dr. Carmen Lubin MD Status of Scribe Document: Viewed
[2019-11-23 15:22] VITALS: BP 122/77
== END 2019-11-23 15:22 | disposition home or self-care (01) ==
LOC: ED 14:01
DX: R07.89 Other chest pain (principal); R06.02 Shortness of breath; F17.210 Nicotine dependence, cigarettes, uncomplicated
CPT/HCPCS: 36415; 71046; 80053; 84484; 85025; 85610; 93005; 99282; A9270-GY